=== PATIENT | male | born 1955 | race Hispanic/Latino ===

== ENCOUNTER 2019-01-20 10:33 | Emergency (ER) | payer OTHER, BC ==
[~2019-01-20] VITALS: Ht 162.6 cm; Wt 88.5 kg
== END 2019-01-20 13:03 | disposition home or self-care (01) ==
LOC: ED 10:33
DX: M25.511 Pain in right shoulder (principal); Z87.891 Personal history of nicotine dependence
CPT/HCPCS: 73030; 99283